=== PATIENT | female | born 1935 | race Caucasian/White ===

== ENCOUNTER → 2017-04-25 | Outpatient (CLI) | payer MEDICARE ==
[~2017-04-25] MED LIST: ASPIRIN81 M2 PO; CENTRUM SILVER1 EAC2 PO; DIGOXIN125 MCG PO; DILTIAZEM ER60 MG PO; FISH OIL 1,0001 CAP PO; LEVOTHYROXINE25 MC1 PO; NICOTINE TRANSD14 MG EXT; PROAIR HFA8.5 GM IH; SOTALOL AF80 M1 PO; SPIRIVA18 MCG INH; VITAMIN D1000 UNI1 PO; XARELTO20 MG PO; ZITHROMAX500 MG PO
--- NOTE | ~2017-04-25 | US24 ---
[facility] A Service of [facility] / [facility] RADIOLOGY TEXT RESULTS PATIENT: CHASIDY MONTENEGRO LOCATION: [facility] : 31 UNIT #: [id number] AGE: [address]: Hafsa Barnett MD SEX: F ORDER DR: [id number] [facility] [address] [place], [place] [address] [id number] O MR#: [id number] Acc #: [id number] NAME: CHASIDY MONTENEGRO : 1935 SEX: F STUDY DATE/TIME: 04/25/2017 9:44 UNIT: [facility] ROOM: STUDY DESCRIPTION: US Breast Unilateral Attending Physician: Hafsa Barnett M.D. Ordering Physician: Hafsa Barnett M.D. Primary Care Physician: Hafsa Barnett M.D. MEDICAL IMAGING REPORT This report is preliminary unless electronic signature is present EXAM Left breast ultrasound, 04/25. INDICATION Six-month followup of 2 probably benign cysts in the left breast seen on prior ultrasound this year. FINDINGS Targeted evaluation was performed of the left breast about the 6 o'clock axis and compared with 11/10/2016. Small cyst at the 6 o'clock position about 2 cm from the nipple is present. It measures up to about 5 mm in greatest dimension and appears unchanged. A second cystic lesion noted near the first lesion measures up to about 7 mm in greatest dimension today. It does have some internal echogenic nodularity or debris. It is stable in size. I would recommend an additional 6-month followup ultrasound of these lesions when the patient returns for her yearly screening mammogram. These findings were discussed with the patient at the time of her examination today. IMPRESSION Probably benign ultrasound demonstrating 2 cystic lesions at 6 o'clock position left breast. Additional 6-month followup ultrasound is recommended when the patient returns for her screening mammogram. Patients over the age of 40 are entered into a reminder system with target due date for the next mammogram. A result letter will also be sent to the patient. BIRADS: 3 Probably benign finding; short interval follow-up suggested. Dictated by... [facility] A Service of [facility] RADIOLOGY TEXT RESULTS PATIENT: CHASIDY MONTENEGRO LOCATION: [facility] : 31 UNIT #: [id number] AGE: [address]: Hafsa Barnett MD SEX: F ORDER DR: Marlo Drew Jr., M.D. THIS IS AN ELECTRONICALLY VERIFIED REPORT Marlo Drew Jr., M.D. at 04/25/2017 5:03 PM LYLY/abisai TD: 04/25/2017 14:15 JOB #: [id number] MEDICAL IMAGING REPORT Page 1 of 1 COPY
== END | disposition home or self-care (01) ==
LOC: CWCC 09:10
DX: R92.8 Other abnormal and inconclusive findings on diagnostic imaging of breast (principal)
CPT/HCPCS: 76641